=== PATIENT | female | born 1965 | race Hispanic/Latino ===

== ENCOUNTER → 2017-05-31 | Outpatient (CLI) | payer MEDICAID | END | disposition home or self-care (01) | LOC: RAH 09:19 | PROVIDERS: ATTEND Family Medicine | DX: K80.20 Calculus of gallbladder without cholecystitis without obstruction (principal) | CPT/HCPCS: 76700 ==

== ENCOUNTER 2020-03-14 09:00 | Day surgery (SDC) | payer MEDICAID ==
[2020-03-11 13:19] LABS: BASOPHILS % (AUTO) 0.8 % (0.0-5.0); EOSINOPHILS % (AUTO) 1.5 % (0.0-8.0); HEMATOCRIT 39.6 % (36-48); LYMPHOCYTES % (AUTO) 24.2 % (21.0-51.0); MEAN CORPUSCULAR HEMOGLOBIN 32.5 pg (27.0-33.0); MEAN CORPUSCULAR HGB CONC 33.8 g/dL (32.0-36.0); MEAN CORPUSCULAR VOLUME 96.1 fL (79-99); MONOCYTES % (AUTO) 7.8 % (3.0-13.0); NEUTROPHILS % (AUTO) 65.4 % (40.0-77.0); PLATELET COUNT (AUTO) 268 K/uL (130-400); RED BLOOD CELL COUNT(AUTO) 4.12 MIL/uL (4.00-5.50); RED CELL DISTRIBUTION WIDTH 11.8 % (11.0-15.5)
[2020-03-11 13:55] LABS: ALBUMIN 4.1 g/dL (3.5-5.0); BILIRUBIN,TOTAL 0.3 mg/dL (0.2-1.0); CREATININE 0.7 mg/dL (0.5-1.5); POTASSIUM 3.5 mmol/L (3.5-5.1); TOTAL PROTEIN, SERUM 8.3 g/dL (6.0-8.3)
[2020-03-11 15:20] LABS: INR 0.89 (0.85-1.15); PARTIAL THROMBOPLASTIN TIME 24.3 SEC (26.3-35.5); PROTHROMBIN TIME 9.3 SEC (9.6-11.6)
[2020-03-13 13:21] VITALS: BP 138/84
[~2020-03-14] VITALS: Ht 160 cm; Wt 70.5 kg
[2020-03-14] VITALS (24 sets, daily range): BP systolic 121–166; BP diastolic 60–98
[~2020-03-14 09:00] MED LIST: ACET-66 PO; CEFAZOLIN SODIUM 1 GM VIAL IVP SCH; METO-408 PO; PANT40GR PO; SODIUM CHLORIDE 0.9% 500ML 500 ML IV SCH
[2020-03-14] MEDS ORDERED: SODIUM CHLORIDE 0.9% 1000ML 1,000 ML IV ONE (09:40)
[2020-03-14] MEDS ORDERED: CLINDAMYCIN 900 MG/D5% WATER 50 ML IV ONE (09:40)
[2020-03-14] MEDS ORDERED: FENTANYL CITRATE PF 50 MCG/1 ML 2ML VIAL ONE ×2 (11:47→15:23)
[2020-03-14] MEDS ORDERED: LIDOCAINE PF 2% 5ML ABBOJECT ONE ×2 (11:47→14:58)
[2020-03-14] MEDS ORDERED: SUCCINYLCHOLINE CHLORIDE 20 MG/ML 10 ML VIAL ONE (11:47)
[2020-03-14] MEDS ORDERED: ROCURONIUM 10MG/1ML SYR 10 MG/ML ML ONE (11:48)
[2020-03-14] MEDS ORDERED: MIDAZOLAM HCL 1 MG/ML 2ML VIAL ONE ×2 (11:48→14:58)
[2020-03-14] MEDS ORDERED: PROPOFOL 10 MG/ML 20ML VIAL IV ONE ×2 (11:48→14:58)
[2020-03-14] MEDS ORDERED: ONDANSETRON HCL 4 MG/2 ML VIAL ONE ×2 (11:49→14:59)
[2020-03-14] MEDS ORDERED: BUPIVACAINE/PF 0.25% 30ML VIAL IJ ONE (12:48)
[2020-03-14] MEDS ORDERED: BUPIVACAINE/PF 0.5% 30ML VIAL ONE (14:40)
[2020-03-14] MEDS ORDERED: GLYCOPYRROLATE 1 MG/5 ML SYRINGE ONE (16:35)
[2020-03-14] MEDS ORDERED: NEOSTIGMINE 5MG/5ML SYR IV ONE (16:35)
[2020-03-14] MEDS ORDERED: KETOROLAC TROMETHAMINE 30MG/ML ONE (17:01)
[2020-03-14] MEDS ORDERED: MEPERIDINE-PF 25 MG/ML SYG ONE (17:13)
--- NOTE | 2020-03-14 18:00 | NUR ---
DAY PT ARRIVAL, PT IN BED IN NO APPARENT DISTRESS, INCISION APPEARS CDI.
== END 2020-03-14 19:02 | disposition home or self-care (01) ==
LOC: DAH 09:00
PROVIDERS: ATTEND Student in an Organized Health Care Education/Training Program
DX: C50.911 Malignant neoplasm of unspecified site of right female breast (principal); C77.3 Secondary and unspecified malignant neoplasm of axilla and upper limb lymph nodes; Z20.828 Contact with and (suspected) exposure to other viral communicable diseases; I49.1 Atrial premature depolarization; K21.9 Gastro-esophageal reflux disease without esophagitis; E66.9 Obesity, unspecified; Z98.890 Other specified postprocedural states; Z98.891 History of uterine scar from previous surgery; Z79.01 Long term (current) use of anticoagulants
CPT/HCPCS: 36415; 38525; 71045; 80053; 85025; 85610; 85730; 93005; A4215 ×2; A4216; A4221; A4222; A4223 ×2; A4606; A4649; A4663; A4930; A6260; C9803; G0168; J0330; J1885; J2001 ×2; J2175; J2250 ×2; J2405 ×2; J2704 ×2; J2710; J3010 ×2; J3490 ×3; J7030; J7120; U0003